=== PATIENT | male | born 2000 | race Caucasian/White ===

== ENCOUNTER → 2020-04-27 | Outpatient (CLI) | payer OTHER ==
--- NOTE | 2020-04-27 13:04 | Diagnostic Imaging Report ---
INDICATION: Smashed fingers. TIME OF EXAM: 11:55 AM 3 views of the right hand demonstrate comminuted fractures of the nidia of the 3rd and 4th fingers. No other fractures are seen. Metacarpals are intact. Carpus appears intact. IMPRESSION: Comminuted fractures involving the nidia of the 3rd and 4th fingers. Dictated by: Dictated on workstation # [id number]
== END ==
LOC: RAD FS 11:37
PROVIDERS: ATTEND Emergency Medicine
DX: S62.632A Displaced fracture of distal phalanx of right middle finger, initial encounter for closed fracture (principal); S62.634A Displaced fracture of distal phalanx of right ring finger, initial encounter for closed fracture
CPT/HCPCS: 73130